=== PATIENT | male | born 1990 | race African-American/Black ===

== ENCOUNTER 2019-08-15 05:59 | Inpatient (IN) | payer OTHER ==
[2019-08-03 17:09] VITALS: BMI 42.4
[2019-08-15] MEDS ORDERED: MIDAZOLAM HCL 2 MG/2 ML SINGLE DOSE VIAL ONE ×2 (07:10→07:15)
[2019-08-15] MEDS ORDERED: DEXAMETHASONE SOD PHOSPHATE/PF 10 MG/ML SDV ONE (07:10)
[2019-08-15] MEDS ORDERED: BUPIVACAINE HCL/PF 0.5% (5 MG/ML) 30 ML VIAL IJ ONE (07:11)
[2019-08-15] MEDS ORDERED: PROPOFOL 20 ML ONE ×2 (07:17→08:32)
[2019-08-15] MEDS ORDERED: SUCCINYLCHOLINE CHLORIDE 200 MG/10 ML SYRINGE ONE (07:18)
[2019-08-15] MEDS ORDERED: ROCURONIUM BROMIDE 50 MG/5 ML SYRINGE ONE (07:18)
[2019-08-15] MEDS ORDERED: BUPIVACAINE HCL 0.25% 125 MG/50 ML VIAL ONE ×2 (07:22→07:23)
[2019-08-15] MEDS ORDERED: ceFAZolin SODIUM 1 GM VIAL ONE (08:07)
[2019-08-15] MEDS ORDERED: ONDANSETRON 4 MG/2 ML VIAL ONE (08:10)
[2019-08-15] MEDS ORDERED: DEXAMETHASONE SOD PHOSPHATE 4 MG/1 ML VIAL ONE (08:10)
[2019-08-15] MEDS ORDERED: ePHEDrine SULFATE 50 MG/1 ML AMPULE ONE (08:32)
[2019-08-15] MEDS ORDERED: NEOSTIGMINE METHYLSULFATE 0.5 MG/ML - 10 ML MDV ONE (08:52)
[2019-08-15] MEDS ORDERED: GLYCOPYRROLATE 0.2 MG/1 ML VIAL ONE (08:52)
[2019-08-15] MEDS ORDERED: ONDANSETRON 4 MG/2 ML VIAL IVPUSH PRN (09:28)
[2019-08-15] MEDS ORDERED: HYDROmorphone HCL CARPU-JECT 1 MG/1 ML DISP.SYRIN IM PRN (09:28)
[2019-08-15] MEDS ORDERED: METOCLOPRAMIDE HCL INJECTION 10 MG/2 ML VIAL IVPUSH SCH (09:30)
--- NOTE | 2019-08-15 09:34 | OP ---
Operative Note - Note: Operative Date: 08/15/19 Pre-Operative Diagnosis: Morbid Obesity Operation: Laparoscopic Vertical Sleeve Gastrectomy. Wedge Biopsy of left lobe of liver. Diagnostic Laparoscopy Findings: Greater curve sleeve gastrectomy performed with #[address] Wedge biopsy performed on enlarged left lobe of liver Post-Operative Diagnosis: Same as Pre-op (Hepatomegaly) Surgeon: Poli Fontenot Piano Case Maker: Rk Mckeon Anesthesia: General Specimens Removed: Greater curve of stomach. Wedge biopsy of left lobe of liver Estimated Blood Loss (mls): 30 Operative Report Dictated: Yes
[2019-08-15] MEDS ORDERED: FAMOTIDINE 20 MG PREMIXED IVPB IVPB ONE (09:50)
[2019-08-15] MEDS ORDERED: LACTATED RINGERS SOLUTION 1,000 ML IV SCH (10:00)
[2019-08-15] MEDS: ACETAMINOPHEN 1000 MG/100 ML VIAL (NON FORMULARY) IVPB SCH ×3 (10:05→21:25)
[2019-08-15 10:13] LABS: HEMATOCRIT 43.3 % (35.4-49); HEMOGLOBIN 14.5 GM/dl (11.7-16.9); MCH 27.2 pg (25.7-33.7); MCHC 33.5 g/dl (32.0-35.9); MEAN CELL VOLUME 81.1 fl (80-96); MEAN PLT VOLUME 9.6 fl (7.5-11.1); PLATELET COUNT 308 K/MM3 (134-434); RBC 5.34 M/mm3 (4.00-5.60); RDW 13.3 % (11.9-15.9); WHITE BLOOD COUNT 13.3 K/mm3 (4.0-10.8)
[2019-08-15 10:20] LABS: ALBUMIN 4.1 g/dl (3.4-5.0); BILIRUBIN,TOTAL 0.3 mg/dl (0.2-1); CALCIUM 8.6 mg/dl (8.5-10); CREATININE 1.3 mg/dl (0.55-1.3); POTASSIUM 4.3 mmol/L (3.5-5.1); TOT PROT 6.9 g/dl (6.4-8.2)
--- NOTE | 2019-08-15 11:02 | OP ---
DATE OF OPERATION: 08/15/2019 PREOPERATIVE DIAGNOSIS: Morbid obesity. POSTOPERATIVE DIAGNOSES: 1. Morbid obesity. 2. Hepatomegaly. PROCEDURES PERFORMED: 1. Laparoscopic vertical sleeve gastrectomy. 2. Wedge biopsy of the left lobe of liver. 3. Diagnostic laparoscopy. OPERATING SURGEON: Poli Fontenot MD ENERGY CONSERVATION DIRECTOR: Rk Mckeon MD ANESTHESIA: General. EXPECTED BLOOD LOSS: 30 mL. OPERATIVE PROCEDURE: The patient was brought into the operating room, placed on the OR table in the supine position. All precautions were taken initially including padding for the back and the feet, and Venodyne boots were placed on both lower extremities. At that point, the abdomen was prepped and draped in the usual manner. A Veress needle was placed in the left upper quadrant, and a pneumoperitoneum was established. Under direct vision was an Optiport, a No. 5 bladeless trocar with the camera was placed directly into the abdominal cavity. Through that trocar, laparoscopic camera was placed. Under direct vision, a No. 15 bladeless trocar was placed in the midline above the umbilicus followed by a No. 5 bladeless trocar in the right upper quadrant and No. 5 bladeless trocar below the left costal margin. A Analia liver retractor was then placed to the epigastrium to retract the left lobe of the liver. The left lobe was noted to be extremely enlarged and thickened, and it was decided that a biopsy could be performed. Using the LigaSure device, it was able to take a triangular shaped wedge off the inferior edge of the left lobe of the liver. This was then sent off the field as specimen to pathology. There was minor bleeding noted from the parenchyma, and this was controlled with the electrocautery or the hook portion of the LigaSure. At this point, our attention was directed to the stomach and specifically the distal stomach where the pylorus was noted, 6 cm was measured proximally from there, and at this point, the operating surgeon lifted his stomach toward to the anterior abdominal wall as the apartment assistant manager surgeon retracted the gastrocolic ligament inferiorly. The LigaSure device was then used to dissect the gastrocolic ligament and the short gastric vessels off the greater curve of the stomach. This continued in a superior and vertical direction until a final short gastric vessel between the superior pole of the spleen and proximal fundus was divided. At this juncture, anesthesia advanced a No. 36 bougie along the lesser curve. With the bougie held along the lesser curvature, a series of jocy was performed with the first 2 being black load jocy 6 cm in length along the bougie. This was followed by a series of purple load jocy also 6 cm in length along the bougie until a final staple was fired in the left upper quadrant. Greater curve was now completely detached from the lesser curve. It should be noted that prior to firing each staple, both the anterior and posterior melton were checked as they were equal, and in the area of the esophagogastric junction, approximately 1 to 1-1/2 cm of serosa remained on the anterior and posterior surfaces. There was noted to be some minor bleeding from the staple line, mainly the lower portion of the sleeve on the remaining portion on the lesser curve, but also the very proximal portion of the spleen. Therefore, the Endo Stitch was used to run the suture and run the whole staple line from superior to inferior until it was completed in the lower portion of the stomach. When this was completed, suction was performed and showed that there was no further active bleeding from the staple line. At this juncture, saline was placed around the staple line. Anesthesia inserted air into the bougie, which showed the entire stomach distended. No obstruction and no leaks were noted. At this point, the resected stomach was removed with a No. 15 trocar site, and the No. 15 trocar site was then closed with endoclosure device to prevent internal hernia and to prevent bleeding. Under direct vision, all trocars were removed, and pneumoperitoneum was released. All trocar sites received 0.25% Marcaine and were closed with 4-0 Biosyn in subcuticular fashion except for the No. 15 midline trocar was 1st closed with a 3-0 Vicryl in the subcutaneous tissue followed by 4-0 Biosyn in subcuticular fashion. Dressings were applied. Patient awoken from anesthesia and transferred out of the operating room to the recovery room in stable condition. Rey [id number]
[2019-08-15] MEDS ORDERED: HYDROmorphone HCL CARPU-JECT 1 MG/1 ML DISP.SYRIN IVPB PRN (11:50)
[2019-08-15] MEDS: SODIUM CHLORIDE 1,000 ML IV SCH (11:58)
[2019-08-15] MEDS: FAMOTIDINE 20 MG/50 ML IVPB 20 MG/50 ML MG IVPB SCH ×2 (11:59→21:25)
[2019-08-15] MEDS: METOCLOPRAMIDE HCL INJECTION 10 MG/2 ML VIAL IVPUSH SCH ×2 (17:53→23:44)
[2019-08-15] MEDS: ENOXAPARIN NA (PORCINE) 40 MG/0.4 ML DISP.SYRIN SQ SCH (23:44)
[2019-08-16] MEDS: ACETAMINOPHEN 1000 MG/100 ML VIAL (NON FORMULARY) IVPB SCH (03:12)
[2019-08-16] MEDS: METOCLOPRAMIDE HCL INJECTION 10 MG/2 ML VIAL IVPUSH SCH ×2 (06:12→12:24)
[2019-08-16 08:08] LABS: HEMATOCRIT 41.9 % (35.4-49); HEMOGLOBIN 14.4 GM/dl (11.7-16.9); MCH 27.6 pg (25.7-33.7); MCHC 34.2 g/dl (32.0-35.9); MEAN CELL VOLUME 80.7 fl (80-96); MEAN PLT VOLUME 9.6 fl (7.5-11.1); PLATELET COUNT 318 K/MM3 (134-434); RDW 13.5 % (11.9-15.9); WHITE BLOOD COUNT 14.4 K/mm3 (4.0-10.8)
[2019-08-16 08:16] LABS: ALBUMIN 4.4 g/dl (3.4-5.0); BILIRUBIN,TOTAL 0.6 mg/dl (0.2-1); CALCIUM 9.1 mg/dl (8.5-10); CREATININE 1.1 mg/dl (0.55-1.3); POTASSIUM 4.3 mmol/L (3.5-5.1); TOT PROT 7.3 g/dl (6.4-8.2)
--- NOTE | 2019-08-16 08:19 | PN ---
Progress Note (short form) - Note Progress Note: 29M POD#1 for sleeve gastrectomy under GETA. This am pt. is doing well. VSS. No anesthesia related complications. Pain well controlled. Continue management per primary team.
--- NOTE | 2019-08-16 09:27 | DS ---
Physical Exam: SUBJECTIVE: Patient seen and examined OBJECTIVE: Vital Signs Temperature 99.3 F 08/16/19 05:57 Pulse Rate 81 08/16/19 05:57 Respiratory Rate 20 08/16/19 05:57 Blood Pressure 136/70 08/16/19 05:57 O2 Sat by Pulse Oximetry (%) 96 08/16/19 05:57 PHYSICAL EXAM GENERAL: The patient is awake, alert, and fully oriented, in no acute distress. HEAD: Normal with no signs of trauma. EYES: PERRL, extraocular movements intact, sclera anicteric, conjunctiva clear. ENT: Ears normal, nares patent, oropharynx clear without exudates, moist mucous membranes. NECK: Trachea midline, full range of motion, supple. LUNGS: Breath sounds equal, clear to auscultation bilaterally, no wheezes, no crackles, no accessory muscle use. HEART: Regular rate and rhythm, S1, S2 without murmur, rub or gallop. ABDOMEN: Soft, mild diffuse tenderness, incisions clean no erythema or discharge nondistended, normoactive bowel sounds, no guarding, no rebound, no hepatosplenomegaly, no masses. EXTREMITIES: warm, well-perfused, no edema. NEUROLOGICAL: Cranial nerves II through XII grossly intact. Normal speech, gait not observed. PSYCH: Normal mood, normal affect. SKIN: Warm, dry, normal turgor, no rashes or lesions noted. LABS CBC,CMP WBC 14.4 K/mm3 (4.0-10.8) H 08/16/19 07:00 RBC 5.20 M/mm3 (4.00-5.60) 08/16/19 07:00 Hgb 14.4 GM/dl (11.7-16.9) 08/16/19 07:00 Hct 41.9 % (35.4-49) 08/16/19 07:00 MCV 80.7 fl (80-96) 08/16/19 07:00 MCH 27.6 pg (25.7-33.7) 08/16/19 07:00 MCHC 34.2 g/dl (32.0-35.9) 08/16/19 07:00 RDW 13.5 % (11.9-15.9) 08/16/19 07:00 Plt Count 318 K/MM3 (134-434) 08/16/19 07:00 MPV 9.6 fl (7.5-11.1) 08/16/19 07:00 Sodium 136 mmol/L (136-145) 08/16/19 07:00 Potassium 4.3 mmol/L (3.5-5.1) 08/16/19 07:00 Chloride 101 mmol/L (98-107) 08/16/19 07:00 Carbon Dioxide 28 mmol/L (21-32) 08/16/19 07:00 Anion Gap 7 MMOL/L (8-16) L 08/16/19 07:00 BUN 12.0 mg/dl (7-18) 08/16/19 07:00 Creatinine 1.1 mg/dl (0.55-1.3) 08/16/19 07:00 Est GFR (CKD-EPI)AfAm 106.06 08/16/19 07:00 Est GFR (CKD-EPI)NonAf 91.51 08/16/19 07:00 Random Glucose 121 mg/dl (74-106) H 08/16/19 07:00 Calcium 9.1 mg/dl (8.5-10) 08/16/19 07:00 Total Bilirubin 0.6 mg/dl (0.2-1) 08/16/19 07:00 AST 46 U/L (15-37) H 08/16/19 07:00 ALT 41 U/L (13-61) 08/16/19 07:00 Alkaline Phosphatase 43 U/L (45-117) L 08/16/19 07:00 Total Protein 7.3 g/dl (6.4-8.2) 08/16/19 07:00 Albumin 4.4 g/dl (3.4-5.0) 08/16/19 07:00 HOSPITAL COURSE: Date of Admission:08/15/19 Date of Discharge: 08/16/19 The patient was admitted to the Med-Surg Unit after elective bariatric surgery. Now, s/p laparoscopic vertical sleeve gastrectomy. The day of surgery, the patient ambulated the hallways with assistance. The patient was monitored with remote tele/continuous pulse ox. Narcotic and non-narcotic pain management control was achieved with oral and IV pain control. Upper GI series was obtained the following morning and no leak, extravastion or gastric outlet obstruction. Started on a Bariatric Stage 1 diet and tolerated well. Bonnie-operative IV ABX were administered in addition to GI prophylaxis. DVT prophylaxis was achieved with SCDs and early ambulation. The discharge instructions and an oral pain management plan were reviewed with the patient. All questions answered. Above plan discussed with Dr. Fontenot and agreed. Minutes to complete discharge: 20
[2019-08-16] MEDS: ENOXAPARIN NA (PORCINE) 40 MG/0.4 ML DISP.SYRIN SQ SCH (09:58)
[2019-08-16] MEDS: FAMOTIDINE 20 MG/50 ML IVPB 20 MG/50 ML MG IVPB SCH (09:58)
[2019-08-16] MEDS: SODIUM CHLORIDE 1,000 ML IV SCH (09:59)
[2019-08-16] MEDS ORDERED: oxyCODONE HCL 5 MG TABLET PO PRN (11:38)
[2019-08-16] MEDS ORDERED: SODIUM CHLORIDE 1,000 ML IV SCH ×2 (11:45→12:00)
[2019-08-16 13:49] VITALS: BP 174/84; PULSE 81; TEMP 98.2
--- NOTE | 2019-08-18 13:05 | PATH ---
Surgical Pathology Report Patient Name: ABIOLA RIVAS Med. Rec. #: [id number] /Age/Gender: 1990 (Age: 29) / M Account: [id number] Location: [facility] MED-SURG Taken: 08/15/2019 Received: 08/15/2019 Reported: 08/18/2019 Physicians: Poli Fontenot M.D. Specimen(s) Received A: GREATER CURVATURE OF STOMACH B: LIVER BIOPSY Clinical History Morbid obesity Final Diagnosis A. GREATER CURVATURE OF STOMACH, LAPAROSCOPIC GASTRIC SLEEVE EXCISION: PORTION OF STOMACH SHOWING MODERATE CHRONIC GASTRITIS. IMMUNOSTAIN SHOWS NUMEROUS H. PYLORI ORGANISMS. B. LIVER, BIOPSY: LIVER SHOWING MARKED STEATOSIS (~60%) AND MILD STEATOHEPATITIS (GRADE 1). TRICHROME STAIN SHOWS PATCHY SINUSOIDAL AND PERICELLULAR FIBROSIS (STAGE I). IRON STAIN IS NEGATIVE. Electronically Signed Coreen Hoang M.D. Gross Description A. Received in formalin, labeled "greater curvature, stomach," is a 16.5 x 4.5 x 2 cm. portion of stomach with a stapled margin of resection. The serosa is calabrese-avina with minimal attached fat. The mucosa is calabrese-pink with normal folds. No mucosal masses are identified. C Software Developer sections are submitted in one cassette. B. Received in formalin, labeled "liver biopsy" is a 2.5 x 1.5 x 1 cm portion of yellow-brown soft tissue. C Software Developer tissue is submitted in one cassette.
== END 2019-08-16 15:37 | disposition home or self-care (01) | DRG 621 ==
LOC: FM/S 05:59
PROVIDERS: ADMIT Surgery; ATTEND Surgery
PROC: 0FB24ZX Excision of Left Lobe Liver, Percutaneous Endoscopic Approach, Diagnostic (ICD-10-PCS; 2019-08-15)
PROC: 0DB64Z3 Excision of Stomach, Percutaneous Endoscopic Approach, Vertical (ICD-10-PCS; principal; 2019-08-15 08:19)
DX: E66.01 Morbid (severe) obesity due to excess calories (principal); R16.0 Hepatomegaly, not elsewhere classified; Z68.41 Body mass index [BMI] 40.0-44.9, adult
CPT/HCPCS: 36415; 74241-TC-FY; 80053; 85027; 94760; J0131; J7030